=== PATIENT | female | born 1980 | race African-American/Black ===

== ENCOUNTER 2017-07-25 20:42 | Inpatient (IN) | payer SELFPAY ==
[~2017-07-25] VITALS: Ht 167.6 cm; Wt 73.6 kg
[2017-07-25 22:08] LABS: HEMATOCRIT 31.4 % (36.0-46.0); HEMOGLOBIN 10.5 G/DL (11.9-15.5); MCH 27.3 PG (29.0-34.0); MCHC 33.4 G/DL (30.0-36.0); MCV 81.6 FL (83-99); RBC DIS.WIDTH-CV 16.2 % (11.8-14.6); RBC DIS.WIDTH-SD 48.4 % (39-53); RED BLOOD COUNT 3.85 M/uL (3.80-5.20); WHITE BLOOD COUNT 14.1 K/uL (4.1-10.2)
[2017-07-25 22:38] LABS: CHLORIDE 99 mEq/L (99-109); SODIUM 132 mEq/L (136-147)
[2017-07-25 22:40] LABS: GLUCOSE 136 mg/dL (70-99)
[2017-07-25 22:44] LABS: QUANTITATIVE HCG < 4.0 MIU/ML; UREA NITROGEN (BUN) 15 mg/dL (9-23)
[2017-07-25 22:48] LABS: GFR ESTIMATE (CALCULATED) > 59 mL/min/
[2017-07-25 23:00] LABS: HEMATOLOGY COMMENT 1 SN; PLAT.SUFFICIENCY ADEQUATE; PLATELET COUNT 202 K/uL (156-360)
[2017-07-25 23:37] LABS: ALBUMIN 3.6 g/dL (3.2-4.8)
[2017-07-25 23:39] LABS: TROP-I INTERPRETATION NEGATIVE; TROPONIN-I < 0.01 ng/mL (0.0-0.30)
[2017-07-25 23:40] LABS: TOTAL PROTEIN 7.2 g/dL (6.4-8.3)
[2017-07-25 23:42] LABS: TOTAL BILIRUBIN 0.6 mg/dL (0.0-1.0)
[2017-07-25 23:43] LABS: ALKALINE PHOSPHATASE 116 IU/L (3-129)
[2017-07-25 23:45] LABS: AST (GOT) 19 IU/L (2-34)
[2017-07-25 23:46] LABS: ALT (GPT) 15 IU/L (3-49); DIRECT BILIRUBIN 0.3 mg/dL (0.0-0.3)
[2017-07-25 23:47] LABS: LIPASE 20 U/L (1.0-51.0)
[2017-07-26 00:06] LABS: ABSOLUTE RETICULOCYTE CT. 0.1 M/uL (0.02-0.08); RETIC HGB EQUIVALENT 33.4 (28-36); RETICULOCYTE COUNT 2.1 % (0.5-1.8)
[2017-07-26 00:40] LABS: APPEARANCE CLOUDY ((CLEAR)); BILIRUBIN NEGATIVE; BLOOD NEGATIVE; COLOR YELLOW ((YELLOW)); GLUCOSE (STRIP) >=500; KETONES 5; LEUKOCYTES NEGATIVE; NITRITE NEGATIVE; PROTEIN (STRIP) 100
[2017-07-26 00:57] LABS: EPITHELIAL CELLS 3+ /HPF; RED BLOOD CELLS 0-5 /HPF (0-5); WHITE BLOOD CELLS 0-5 /HPF (0-5)
[2017-07-26 00:58] LABS: BACTERIA 1+ /HPF; MUCUS NONE SEEN /LPF; UCUL ADDED? NO
[2017-07-26] MEDS ORDERED: HYDREA500 MG PO (02:34)
[2017-07-26] MEDS ORDERED: FOLIC ACID1 MG PO (02:34)
[2017-07-26] MEDS ORDERED: BENADRYL50 MG PO (02:35)
[2017-07-26] MEDS ORDERED: DILAUDID8 MG PO (02:35)
[2017-07-26 03:27] VITALS: BP 95/59
[2017-07-26 07:26] VITALS: BP 108/76
[2017-07-26 11:44] VITALS: BP 123/78
[2017-07-26] MEDS ORDERED: PROMETHAZINE HC50 M1 PO (11:53)
[2017-07-26 14:35] VITALS: BP 96/55
[2017-07-26 19:41] VITALS: BP 120/67
[2017-07-26 23:44] VITALS: BP 111/59
[2017-07-27 04:00] VITALS: BP 103/62
[2017-07-27 07:17] VITALS: BP 109/58
[2017-07-27 10:56] LABS: HEMATOCRIT 28.6 % (36.0-46.0); HEMOGLOBIN 9.5 G/DL (11.9-15.5); MCH 27.4 PG (29.0-34.0); MCHC 33.2 G/DL (30.0-36.0); MCV 82.4 FL (83-99); RBC DIS.WIDTH-CV 16.4 % (11.8-14.6); RBC DIS.WIDTH-SD 49.4 % (39-53); RED BLOOD COUNT 3.47 M/uL (3.80-5.20); WHITE BLOOD COUNT 6.5 K/uL (4.1-10.2)
[2017-07-27 11:10] VITALS: BP 119/81
[2017-07-27 16:01] VITALS: BP 126/80
[2017-07-27 16:28] LABS: ALBUMIN 3.4 G/DL (3.2-4.8); CHLORIDE 100 MEQ/L (99-109); POTASSIUM 3.9 MEQ/L (3.7-5.4); SODIUM 136 MEQ/L (136-147); TOTAL BILIRUBIN 0.3 MG/DL (0.0-1.0)
[2017-07-27 16:34] LABS: ALKALINE PHOSPHATASE 101 IU/L (3-129); ALT (GPT) 10 IU/L (3-49); AST (GOT) 15 IU/L (2-34); CREATININE 0.9 MG/DL (0.6-1.3); GFR ESTIMATE (CALCULATED) > 59 mL/min/; TOTAL PROTEIN 7.1 G/DL (6.4-8.3); UREA NITROGEN (BUN) 8 mg/dL (9-23)
[2017-07-27 16:40] LABS: GLUCOSE 99 mg/dL (70-99)
[2017-07-27 20:13] VITALS: BP 129/71
[2017-07-27 23:54] VITALS: BP 109/63
[2017-07-28 03:42] VITALS: BP 122/78
[2017-07-28 07:49] VITALS: BP 110/62
[2017-07-28] MEDS ORDERED: DILAUDID4 MG PO (11:00)
[2017-07-28 11:21] VITALS: BP 105/74
== END 2017-07-28 14:17 | disposition home or self-care (01) | DRG 812 ==
LOC: EME 20:42 → 5SOUTH 07-26 01:15 → EDOF 07-26 01:15 → ENRESERV 07-26 01:25 → 5SOUTH 07-26 02:47
PROVIDERS: Emergency Medicine; Hospitalist; Nurse Practitioner Family; Physician Assistant Medical
DX: D57.00 Hb-SS disease with crisis, unspecified (principal); E87.1 Hypo-osmolality and hyponatremia; E86.0 Dehydration; F12.90 Cannabis use, unspecified, uncomplicated; Z88.0 Allergy status to penicillin
CPT/HCPCS: 71045; 80048; 80053; 80076; 81003; 83605; 83690; 84484; 84702; 85014; 85018; 85027; 85046; 86850; 86900; 86901; 87040; 87502; 93005; 99281; 99285; C1753; J0696; J1200; J1644; J3010; J7030

== ENCOUNTER 2017-09-13 14:45 | Emergency (ER) | payer SELFPAY ==
[~2017-09-13] VITALS: Ht 167.6 cm; Wt 70.4 kg
[~2017-09-13 14:45] MED LIST: BENADRYL50 MG PO; DILAUDID4 MG PO; DILAUDID8 MG PO; FOLIC ACID1 MG PO; HYDREA500 MG PO; PROMETHAZINE HC50 M1 PO
[2017-09-13 15:22] LABS: BASOPHIL (%) 0.2 % (0-1); EOSINOPHIL (%) 3.6 % (0-5); EOSINOPHIL COUNT 0.2 K/uL (0-0.3); HEMATOCRIT 31.4 % (36.0-46.0); HEMOGLOBIN 10.1 G/DL (11.9-15.5); IMMATURE GRANULOCYTE (%) 0.5 % (0.0-0.7); LYMPHOCYTE (%) 27.7 % (15-42); LYMPHOCYTE COUNT 1.2 K/uL (1.0-2.8); MCH 25.8 PG (29.0-34.0); MCHC 32.2 G/DL (30.0-36.0); MCV 80.3 FL (83-99); MONOCYTE (%) 11.7 % (3-12); MONOCYTE COUNT 0.5 K/uL (0-0.8); NEUTROPHIL (%) 56.3 % (45-76); NEUTROPHIL COUNT 2.4 K/uL (1.8-6.4); PLATELET COUNT 149 K/uL (156-360); RBC DIS.WIDTH-CV 16.6 % (11.8-14.6); RBC DIS.WIDTH-SD 47.1 % (39-53); RED BLOOD COUNT 3.91 M/uL (3.80-5.20); WHITE BLOOD COUNT 4.2 K/uL (4.1-10.2)
[2017-09-13 15:37] LABS: CHLORIDE 95 mEq/L (99-109); POTASSIUM 4.6 mEq/L (3.7-5.4)
[2017-09-13 15:38] LABS: SODIUM 135 mEq/L (136-147)
[2017-09-13 15:39] LABS: GLUCOSE 186 mg/dL (70-99)
[2017-09-13 15:43] LABS: CREATININE 1.1 mg/dL (0.6-1.3); GFR ESTIMATE (CALCULATED) > 59 mL/min/
[2017-09-13 15:44] LABS: UREA NITROGEN (BUN) 12 mg/dL (9-23)
[2017-09-13 15:46] LABS: CREATINE KINASE 25 IU/L (1-294); TOTAL CK 25 IU/L (1-294)
[2017-09-13 15:51] LABS: CK-MB < 0.4 ng/mL (0.0-4.9)
[2017-09-13 16:46] LABS: QUANTITATIVE HCG < 4.0 MIU/ML
[2017-09-13 17:55] VITALS: BP 114/78
== END 2017-09-13 17:55 | disposition home or self-care (01) ==
LOC: RME 14:45 → EME 14:45 → RME 17:55
PROVIDERS: Nurse Practitioner Family
DX: B34.9 Viral infection, unspecified (principal); D57.00 Hb-SS disease with crisis, unspecified
CPT/HCPCS: 71046; 80048; 81003; 82550; 82553; 84702; 85025; 87081; 87651 90; 99281; 99284